=== PATIENT | male | born 1945 | race Two or more races ===

== ENCOUNTER 2020-08-22 09:30 | Outpatient (CLI) | payer MEDICARE, OTHER ==
[2020-08-22] MEDS ORDERED: LIDOCAINE 2% JEL 5 ML TUBE ONE (09:51)
[2020-08-22] MEDS ORDERED: LIDOCAINE HCL/MPF 1% 30 ML VIAL IJ ONE (10:25)
== END 2020-08-22 23:59 | disposition home or self-care (01) ==
LOC: WOU 09:30
PROVIDERS: ATTEND Podiatrist Foot & Ankle Surgery
DX: I70.242 Atherosclerosis of native arteries of left leg with ulceration of calf (principal); I70.245 Atherosclerosis of native arteries of left leg with ulceration of other part of foot; L97.825 Non-pressure chronic ulcer of other part of left lower leg with muscle involvement without evidence of necrosis; L97.426 Non-pressure chronic ulcer of left heel and midfoot with bone involvement without evidence of necrosis; M79.605 Pain in left leg; Z89.432 Acquired absence of left foot
CPT/HCPCS: 11043; 11044; 73630; 88305; 88311; A6210; J3490

== ENCOUNTER 2020-08-29 08:26 | Outpatient (CLI) | payer MEDICARE, OTHER ==
[2020-08-29] MEDS ORDERED: LIDOCAINE HCL/MPF 1% 30 ML VIAL IJ ONE (08:46)
== END 2020-08-29 23:59 | disposition home health service (06) ==
LOC: WOU 08:26
PROVIDERS: ATTEND Podiatrist Foot & Ankle Surgery
DX: I70.242 Atherosclerosis of native arteries of left leg with ulceration of calf (principal); I70.245 Atherosclerosis of native arteries of left leg with ulceration of other part of foot; L97.825 Non-pressure chronic ulcer of other part of left lower leg with muscle involvement without evidence of necrosis; L97.526 Non-pressure chronic ulcer of other part of left foot with bone involvement without evidence of necrosis; M79.605 Pain in left leg; Z89.432 Acquired absence of left foot; Z79.02 Long term (current) use of antithrombotics/antiplatelets; Z79.82 Long term (current) use of aspirin
CPT/HCPCS: 11043; 11044; A6210; J3490

== ENCOUNTER 2020-09-02 12:49 | Outpatient (CLI) | payer MEDICARE, OTHER | END 2020-09-02 23:59 | disposition home or self-care (01) | LOC: RAD 12:49 | PROVIDERS: ATTEND Podiatrist Foot & Ankle Surgery | DX: I70.203 Unspecified atherosclerosis of native arteries of extremities, bilateral legs (principal); L97.929 Non-pressure chronic ulcer of unspecified part of left lower leg with unspecified severity ==

== ENCOUNTER 2020-09-05 09:13 | Outpatient (CLI) | payer MEDICARE, OTHER ==
[2020-09-05] MEDS ORDERED: LIDOCAINE HCL/MPF 1% 30 ML VIAL IJ ONE (09:40)
[2020-09-05] MEDS ORDERED: COLLAGENASE 5 GM TUBE UD TP ONE (09:45)
== END 2020-09-05 23:59 | disposition home health service (06) ==
LOC: WOU 09:13
PROVIDERS: ATTEND Podiatrist Foot & Ankle Surgery
DX: I70.242 Atherosclerosis of native arteries of left leg with ulceration of calf (principal); I70.245 Atherosclerosis of native arteries of left leg with ulceration of other part of foot; L97.825 Non-pressure chronic ulcer of other part of left lower leg with muscle involvement without evidence of necrosis; L97.523 Non-pressure chronic ulcer of other part of left foot with necrosis of muscle; L03.116 Cellulitis of left lower limb; M79.605 Pain in left leg; Z89.432 Acquired absence of left foot; Z79.82 Long term (current) use of aspirin
CPT/HCPCS: 11043; A6210; J3490

== ENCOUNTER 2020-09-08 08:48 | Outpatient (CLI) | payer MEDICARE, OTHER ==
[2020-09-08] MEDS ORDERED: COLLAGENASE 5 GM TUBE UD TP ONE (09:22)
== END 2020-09-08 23:59 | disposition home health service (06) ==
LOC: WOU 08:48
PROVIDERS: ATTEND Podiatrist Foot & Ankle Surgery
DX: I70.242 Atherosclerosis of native arteries of left leg with ulceration of calf (principal); L97.825 Non-pressure chronic ulcer of other part of left lower leg with muscle involvement without evidence of necrosis; I70.245 Atherosclerosis of native arteries of left leg with ulceration of other part of foot; L97.523 Non-pressure chronic ulcer of other part of left foot with necrosis of muscle; L03.116 Cellulitis of left lower limb; M79.605 Pain in left leg; I10 Essential (primary) hypertension; Z79.02 Long term (current) use of antithrombotics/antiplatelets; Z79.82 Long term (current) use of aspirin; Z89.432 Acquired absence of left foot
CPT/HCPCS: 11042; 11043; A6210

== ENCOUNTER 2020-09-12 09:00 | Outpatient (CLI) | payer MEDICARE, OTHER ==
[2020-09-12] MEDS ORDERED: COLLAGENASE 5 GM TUBE UD TP ONE (09:46)
== END 2020-09-12 23:59 | disposition home health service (06) ==
LOC: WOU 09:00
PROVIDERS: ATTEND Podiatrist Foot & Ankle Surgery
DX: I70.242 Atherosclerosis of native arteries of left leg with ulceration of calf (principal); L97.825 Non-pressure chronic ulcer of other part of left lower leg with muscle involvement without evidence of necrosis; I70.245 Atherosclerosis of native arteries of left leg with ulceration of other part of foot; L97.522 Non-pressure chronic ulcer of other part of left foot with fat layer exposed; M79.605 Pain in left leg; Z89.442 Acquired absence of left ankle; Z79.82 Long term (current) use of aspirin
CPT/HCPCS: 11042; 11043; A6210

== ENCOUNTER 2020-09-14 09:00 | Outpatient (CLI) | payer MEDICARE, OTHER ==
[2020-09-14] MEDS ORDERED: COLLAGENASE 5 GM TUBE UD TP ONE (10:25)
[2020-09-14 11:56] LABS: PREALBUMIN 24.9 MG/DL (18.0-35.7)
[2020-09-15 10:58] LABS: CALCIUM, SERUM 9.7 mg/dL (8.5-10.1); POTASSIUM 4.6 mmol/L (3.5-5.1)
== END 2020-09-14 23:59 | disposition home or self-care (01) ==
LOC: VASLAB 09:00
PROVIDERS: ATTEND Internal Medicine
DX: R60.0 Localized edema (principal); L97.529 Non-pressure chronic ulcer of other part of left foot with unspecified severity; L97.329 Non-pressure chronic ulcer of left ankle with unspecified severity; E78.5 Hyperlipidemia, unspecified; I10 Essential (primary) hypertension; I25.10 Atherosclerotic heart disease of native coronary artery without angina pectoris; Z89.432 Acquired absence of left foot
CPT/HCPCS: 36415; 80048; 83036; 84134; 84520; A6210; G0463

== ENCOUNTER 2020-09-15 09:00 | Outpatient (CLI) | payer MEDICARE, OTHER | END 2020-09-15 23:59 | disposition home health service (06) | LOC: WOU 09:00 | PROVIDERS: ATTEND Podiatrist Foot & Ankle Surgery | DX: I70.242 Atherosclerosis of native arteries of left leg with ulceration of calf (principal); I70.245 Atherosclerosis of native arteries of left leg with ulceration of other part of foot; L97.825 Non-pressure chronic ulcer of other part of left lower leg with muscle involvement without evidence of necrosis; L97.522 Non-pressure chronic ulcer of other part of left foot with fat layer exposed; Z89.422 Acquired absence of other left toe(s); M79.605 Pain in left leg; I10 Essential (primary) hypertension; Z79.02 Long term (current) use of antithrombotics/antiplatelets; Z79.82 Long term (current) use of aspirin | CPT/HCPCS: 11042; 11043; A6210 ==

== ENCOUNTER 2020-09-19 09:05 | Outpatient (CLI) | payer MEDICARE, OTHER ==
[2020-09-19] MEDS ORDERED: LIDOCAINE SOLN 4% 50 ML BOTTLE ONE (09:21)
== END 2020-09-19 23:59 | disposition home health service (06) ==
LOC: WOU 09:05
PROVIDERS: ATTEND Podiatrist Foot & Ankle Surgery
DX: I70.242 Atherosclerosis of native arteries of left leg with ulceration of calf (principal); I70.245 Atherosclerosis of native arteries of left leg with ulceration of other part of foot; L97.825 Non-pressure chronic ulcer of other part of left lower leg with muscle involvement without evidence of necrosis; L97.522 Non-pressure chronic ulcer of other part of left foot with fat layer exposed; M79.605 Pain in left leg; Z89.422 Acquired absence of other left toe(s); Z79.82 Long term (current) use of aspirin
CPT/HCPCS: 11042; 11043; A6210

== ENCOUNTER 2020-09-21 09:55 | Outpatient (CLI) | payer MEDICARE, OTHER ==
[2020-09-21] MEDS ORDERED: IOHEXOL-350 100 ML VIAL IV ONE (10:09)
[2020-09-21] MEDS ORDERED: IV NS 0.9% 250 ML IV ONE (10:10)
== END 2020-09-21 23:59 | disposition home or self-care (01) ==
LOC: CT 09:55
PROVIDERS: ATTEND Internal Medicine
DX: I70.203 Unspecified atherosclerosis of native arteries of extremities, bilateral legs (principal); N20.0 Calculus of kidney; K80.20 Calculus of gallbladder without cholecystitis without obstruction; K57.30 Diverticulosis of large intestine without perforation or abscess without bleeding
CPT/HCPCS: 75635; J7050; Q9967

== ENCOUNTER 2020-09-22 09:15 | Outpatient (CLI) | payer MEDICARE, OTHER ==
[~2020-09-22 09:15] MED LIST: LIDOCAINE SOLN 4% 50 ML BOTTLE ONE
[2020-09-22] MEDS ORDERED: LIDOCAINE HCL/MPF 1% 30 ML VIAL IJ ONE (09:58)
[2020-09-22] MEDS ORDERED: HYDROCORTISONE 1% CREAM 28.35 GM TUBE TP ONE (10:25)
== END 2020-09-22 23:59 | disposition home health service (06) ==
LOC: WOU 09:15
PROVIDERS: ATTEND Podiatrist Foot & Ankle Surgery
DX: I70.242 Atherosclerosis of native arteries of left leg with ulceration of calf (principal); L97.822 Non-pressure chronic ulcer of other part of left lower leg with fat layer exposed; I70.245 Atherosclerosis of native arteries of left leg with ulceration of other part of foot; L97.422 Non-pressure chronic ulcer of left heel and midfoot with fat layer exposed; M79.605 Pain in left leg; Z89.432 Acquired absence of left foot; Z79.02 Long term (current) use of antithrombotics/antiplatelets; Z79.82 Long term (current) use of aspirin
CPT/HCPCS: 11042; 11043; 88305; 88312; A6210; J3490

== ENCOUNTER 2020-09-26 08:50 | Outpatient (CLI) | payer MEDICARE, OTHER ==
[2020-09-26] MEDS ORDERED: LIDOCAINE SOLN 4% 50 ML BOTTLE ONE (09:05)
== END 2020-09-26 23:59 | disposition home health service (06) ==
LOC: WOU 08:50
PROVIDERS: ATTEND Podiatrist Foot & Ankle Surgery
DX: I70.242 Atherosclerosis of native arteries of left leg with ulceration of calf (principal); I70.245 Atherosclerosis of native arteries of left leg with ulceration of other part of foot; L97.825 Non-pressure chronic ulcer of other part of left lower leg with muscle involvement without evidence of necrosis; L97.522 Non-pressure chronic ulcer of other part of left foot with fat layer exposed; I10 Essential (primary) hypertension; Z79.02 Long term (current) use of antithrombotics/antiplatelets; Z79.82 Long term (current) use of aspirin; Z89.432 Acquired absence of left foot
CPT/HCPCS: 11042; 11043

== ENCOUNTER 2020-09-27 11:19 | Outpatient (CLI) | payer MEDICARE, OTHER | END 2020-09-27 23:59 | disposition home or self-care (01) | LOC: MSC 11:19 | PROVIDERS: ATTEND Anesthesiology | DX: M79.672 Pain in left foot (principal); L97.329 Non-pressure chronic ulcer of left ankle with unspecified severity; B99.9 Unspecified infectious disease; L03.116 Cellulitis of left lower limb; Z89.432 Acquired absence of left foot; Z79.891 Long term (current) use of opiate analgesic ==

== ENCOUNTER 2020-09-28 09:00 | Outpatient (CLI) | payer MEDICARE, OTHER | END 2020-09-28 23:59 | disposition home or self-care (01) | LOC: WOU 09:00 | PROVIDERS: ATTEND Internal Medicine | DX: I73.9 Peripheral vascular disease, unspecified (principal); L97.829 Non-pressure chronic ulcer of other part of left lower leg with unspecified severity; L97.529 Non-pressure chronic ulcer of other part of left foot with unspecified severity; I87.2 Venous insufficiency (chronic) (peripheral); R60.0 Localized edema | CPT/HCPCS: G0463 ==

== ENCOUNTER 2020-09-29 09:00 | Outpatient (CLI) | payer MEDICARE, OTHER ==
[2020-09-29 11:07] LABS: ALBUMIN 3.6 g/dL (3.4-5.0); BILIRUBIN,TOTAL 0.5 mg/dL (0.2-1.0); CREATININE 0.9 mg/dL (0.6-1.3); POTASSIUM 4.1 mmol/L (3.5-5.1); TOTAL PROTEIN, SERUM 6.8 g/dL (6.4-8.2)
== END 2020-09-29 23:59 | disposition home health service (06) ==
LOC: WOU 09:00
PROVIDERS: ATTEND Podiatrist Foot & Ankle Surgery
DX: I70.242 Atherosclerosis of native arteries of left leg with ulceration of calf (principal); L97.825 Non-pressure chronic ulcer of other part of left lower leg with muscle involvement without evidence of necrosis; I70.245 Atherosclerosis of native arteries of left leg with ulceration of other part of foot; L97.522 Non-pressure chronic ulcer of other part of left foot with fat layer exposed; M79.605 Pain in left leg; Z89.432 Acquired absence of left foot; I10 Essential (primary) hypertension; Z79.02 Long term (current) use of antithrombotics/antiplatelets; Z79.82 Long term (current) use of aspirin
CPT/HCPCS: 11042; 11043; 36415; 80053-TC

== ENCOUNTER 2020-10-03 09:00 | Outpatient (CLI) | payer MEDICARE, OTHER ==
[2020-10-03] MEDS ORDERED: LIDOCAINE SOLN 4% 50 ML BOTTLE ONE (09:28)
[2020-10-03] MEDS ORDERED: COLLAGENASE 5 GM TUBE UD TP ONE (10:01)
== END 2020-10-03 23:59 | disposition home health service (06) ==
LOC: WOU 09:00
PROVIDERS: ATTEND Podiatrist Foot & Ankle Surgery
DX: I70.242 Atherosclerosis of native arteries of left leg with ulceration of calf (principal); L97.825 Non-pressure chronic ulcer of other part of left lower leg with muscle involvement without evidence of necrosis; I70.245 Atherosclerosis of native arteries of left leg with ulceration of other part of foot; L97.522 Non-pressure chronic ulcer of other part of left foot with fat layer exposed; M79.605 Pain in left leg; Z89.432 Acquired absence of left foot; Z79.02 Long term (current) use of antithrombotics/antiplatelets; Z79.82 Long term (current) use of aspirin
CPT/HCPCS: 11042; 11043; A6452

== ENCOUNTER 2020-10-06 08:50 | Outpatient (CLI) | payer MEDICARE, OTHER | END 2020-10-06 23:59 | disposition home or self-care (01) | LOC: WOU 08:50 | PROVIDERS: ATTEND Podiatrist Foot & Ankle Surgery | DX: Z75.3 Unavailability and inaccessibility of health-care facilities (principal) ==

== ENCOUNTER 2020-10-06 14:00 | Outpatient (CLI) | payer MEDICARE, OTHER ==
[~2020-10-06 14:00] MED LIST changes: +LIDOCAINE HCL/MPF 1% 30 ML VIAL IJ ONE; -LIDOCAINE SOLN 4% 50 ML BOTTLE ONE
== END 2020-10-06 23:59 | disposition home health service (06) ==
LOC: WOU 14:00
PROVIDERS: ATTEND Surgery
DX: I70.242 Atherosclerosis of native arteries of left leg with ulceration of calf (principal); L97.825 Non-pressure chronic ulcer of other part of left lower leg with muscle involvement without evidence of necrosis; I70.245 Atherosclerosis of native arteries of left leg with ulceration of other part of foot; L97.522 Non-pressure chronic ulcer of other part of left foot with fat layer exposed; L03.116 Cellulitis of left lower limb; M79.605 Pain in left leg; B07.8 Other viral warts; I10 Essential (primary) hypertension; Z89.432 Acquired absence of left foot; Z79.02 Long term (current) use of antithrombotics/antiplatelets; Z79.82 Long term (current) use of aspirin
CPT/HCPCS: 11043; 97605; G0463; J3490

== ENCOUNTER 2020-10-10 08:50 | Outpatient (CLI) | payer MEDICARE, OTHER ==
[2020-10-10] MEDS ORDERED: LIDOCAINE SOLN 4% 50 ML BOTTLE ONE (09:04)
[2020-10-10] MEDS ORDERED: COLLAGENASE 5 GM TUBE UD TP ONE (09:34)
[2020-10-10] MEDS ORDERED: TRIAMCINOLONE ACETONIDE 0.1% CR 15 GM TUBE TP ONE (09:34)
== END 2020-10-10 23:59 | disposition home health service (06) ==
LOC: WOU 08:50
PROVIDERS: ATTEND Podiatrist Foot & Ankle Surgery
DX: I70.242 Atherosclerosis of native arteries of left leg with ulceration of calf (principal); L97.825 Non-pressure chronic ulcer of other part of left lower leg with muscle involvement without evidence of necrosis; I70.245 Atherosclerosis of native arteries of left leg with ulceration of other part of foot; L97.522 Non-pressure chronic ulcer of other part of left foot with fat layer exposed; L03.116 Cellulitis of left lower limb; M79.605 Pain in left leg; I10 Essential (primary) hypertension; Z79.02 Long term (current) use of antithrombotics/antiplatelets; Z79.82 Long term (current) use of aspirin; Z89.432 Acquired absence of left foot
CPT/HCPCS: 11042; 11043

== ENCOUNTER 2020-10-13 09:00 | Outpatient (CLI) | payer MEDICARE, OTHER ==
[2020-10-13] MEDS ORDERED: LIDOCAINE 2% 20 ML MDV ONE (10:41)
== END 2020-10-13 23:59 | disposition home health service (06) ==
LOC: WOU 09:00
PROVIDERS: ATTEND Podiatrist Foot & Ankle Surgery
DX: I70.242 Atherosclerosis of native arteries of left leg with ulceration of calf (principal); I70.245 Atherosclerosis of native arteries of left leg with ulceration of other part of foot; L97.825 Non-pressure chronic ulcer of other part of left lower leg with muscle involvement without evidence of necrosis; L97.522 Non-pressure chronic ulcer of other part of left foot with fat layer exposed; L03.116 Cellulitis of left lower limb; M79.605 Pain in left leg; Z89.432 Acquired absence of left foot; Z79.82 Long term (current) use of aspirin; Z79.02 Long term (current) use of antithrombotics/antiplatelets
CPT/HCPCS: 11043; J3490

== ENCOUNTER 2020-10-17 09:00 | Outpatient (CLI) | payer MEDICARE, OTHER ==
[2020-10-17] MEDS ORDERED: TRIAMCINOLONE ACETONIDE 0.1% CR 15 GM TUBE TP ONE (09:35)
[2020-10-17] MEDS ORDERED: COLLAGENASE 5 GM TUBE UD TP ONE (09:36)
== END 2020-10-17 23:59 | disposition home health service (06) ==
LOC: WOU 09:00
PROVIDERS: ATTEND Podiatrist Foot & Ankle Surgery
DX: I70.242 Atherosclerosis of native arteries of left leg with ulceration of calf (principal); I70.245 Atherosclerosis of native arteries of left leg with ulceration of other part of foot; L97.825 Non-pressure chronic ulcer of other part of left lower leg with muscle involvement without evidence of necrosis; L97.522 Non-pressure chronic ulcer of other part of left foot with fat layer exposed; Z89.432 Acquired absence of left foot; M79.605 Pain in left leg; Z79.82 Long term (current) use of aspirin; Z79.02 Long term (current) use of antithrombotics/antiplatelets
CPT/HCPCS: 11042; 11043

== ENCOUNTER 2020-10-20 08:55 | Outpatient (CLI) | payer MEDICARE, OTHER ==
[2020-10-20] MEDS ORDERED: TRIAMCINOLONE ACETONIDE 0.1% CR 15 GM TUBE TP ONE (09:53)
[2020-10-20] MEDS ORDERED: COLLAGENASE 5 GM TUBE UD TP ONE (09:54)
== END 2020-10-20 23:59 | disposition home health service (06) ==
LOC: WOU 08:55
PROVIDERS: ATTEND Podiatrist Foot & Ankle Surgery
DX: I70.242 Atherosclerosis of native arteries of left leg with ulceration of calf (principal); L97.825 Non-pressure chronic ulcer of other part of left lower leg with muscle involvement without evidence of necrosis; I70.245 Atherosclerosis of native arteries of left leg with ulceration of other part of foot; L97.522 Non-pressure chronic ulcer of other part of left foot with fat layer exposed; M79.605 Pain in left leg; Z89.432 Acquired absence of left foot; B07.8 Other viral warts; Z79.02 Long term (current) use of antithrombotics/antiplatelets; Z79.82 Long term (current) use of aspirin
CPT/HCPCS: 11042; 11043

== ENCOUNTER 2020-10-24 09:00 | Outpatient (CLI) | payer MEDICARE, OTHER ==
[2020-10-24] MEDS ORDERED: TRIAMCINOLONE ACETONIDE 0.1% CR 15 GM TUBE TP ONE (09:40)
== END 2020-10-24 23:59 | disposition home health service (06) ==
LOC: WOU 09:00
PROVIDERS: ATTEND Podiatrist Foot & Ankle Surgery
DX: I70.242 Atherosclerosis of native arteries of left leg with ulceration of calf (principal); I70.245 Atherosclerosis of native arteries of left leg with ulceration of other part of foot; L97.825 Non-pressure chronic ulcer of other part of left lower leg with muscle involvement without evidence of necrosis; L97.522 Non-pressure chronic ulcer of other part of left foot with fat layer exposed; M79.605 Pain in left leg; Z89.432 Acquired absence of left foot; Z79.02 Long term (current) use of antithrombotics/antiplatelets
CPT/HCPCS: A6209 ×2; C5271; Q4117

== ENCOUNTER 2020-10-25 11:55 | Outpatient (CLI) | payer MEDICARE, OTHER | END 2020-10-25 23:59 | disposition home or self-care (01) | LOC: MSC 11:55 | PROVIDERS: ATTEND Anesthesiology | DX: L97.529 Non-pressure chronic ulcer of other part of left foot with unspecified severity (principal); L03.116 Cellulitis of left lower limb; M79.2 Neuralgia and neuritis, unspecified; Z79.1 Long term (current) use of non-steroidal anti-inflammatories (NSAID); Z79.891 Long term (current) use of opiate analgesic ==

== ENCOUNTER 2020-10-31 08:55 | Outpatient (CLI) | payer MEDICARE, OTHER ==
[2020-10-31] MEDS ORDERED: LIDOCAINE SOLN 4% 50 ML BOTTLE ONE (08:56)
[2020-10-31] MEDS ORDERED: UREA 10% -AHA 4% CREAM 57 GM TUBE ONE (09:36)
== END 2020-10-31 23:59 | disposition home health service (06) ==
LOC: WOU 08:55
PROVIDERS: ATTEND Podiatrist Foot & Ankle Surgery
DX: I70.242 Atherosclerosis of native arteries of left leg with ulceration of calf (principal); L97.822 Non-pressure chronic ulcer of other part of left lower leg with fat layer exposed; M79.605 Pain in left leg; Z89.432 Acquired absence of left foot; I10 Essential (primary) hypertension; Z79.82 Long term (current) use of aspirin; Z79.02 Long term (current) use of antithrombotics/antiplatelets
CPT/HCPCS: 11043; A6209

== ENCOUNTER 2020-11-07 09:00 | Outpatient (CLI) | payer MEDICARE, OTHER | END 2020-11-07 23:59 | disposition home health service (06) | LOC: WOU 09:00 | PROVIDERS: ATTEND Podiatrist Foot & Ankle Surgery | DX: I70.242 Atherosclerosis of native arteries of left leg with ulceration of calf (principal); L97.825 Non-pressure chronic ulcer of other part of left lower leg with muscle involvement without evidence of necrosis; M79.605 Pain in left leg; Z89.432 Acquired absence of left foot; I10 Essential (primary) hypertension; Z79.899 Other long term (current) drug therapy; Z79.02 Long term (current) use of antithrombotics/antiplatelets | CPT/HCPCS: 11043 ==

== ENCOUNTER 2020-11-10 10:35 | Outpatient (CLI) | payer MEDICARE, OTHER | END 2020-11-10 23:59 | disposition home or self-care (01) | LOC: MRI 10:35 | PROVIDERS: ATTEND Podiatrist Foot & Ankle Surgery | DX: L97.929 Non-pressure chronic ulcer of unspecified part of left lower leg with unspecified severity (principal); M62.572 Muscle wasting and atrophy, not elsewhere classified, left ankle and foot; M79.89 Other specified soft tissue disorders | CPT/HCPCS: 73718-TC; 73721-TC ==

== ENCOUNTER 2020-11-14 09:00 | Outpatient (CLI) | payer MEDICARE, OTHER ==
[~2020-11-14 09:00] MED LIST changes: -LIDOCAINE HCL/MPF 1% 30 ML VIAL IJ ONE; +LIDOCAINE SOLN 4% 50 ML BOTTLE ONE
[2020-11-14] MEDS ORDERED: GENTAMICIN 0.1% CREAM 15 GM TUBE ONE (09:23)
== END 2020-11-14 23:59 | disposition home health service (06) ==
LOC: WOU 09:00
PROVIDERS: ATTEND Podiatrist Foot & Ankle Surgery
DX: I70.242 Atherosclerosis of native arteries of left leg with ulceration of calf (principal); L97.825 Non-pressure chronic ulcer of other part of left lower leg with muscle involvement without evidence of necrosis; M79.605 Pain in left leg; Z89.422 Acquired absence of other left toe(s); Z79.02 Long term (current) use of antithrombotics/antiplatelets; Z79.82 Long term (current) use of aspirin
CPT/HCPCS: 11043

== ENCOUNTER 2020-11-21 08:55 | Outpatient (CLI) | payer MEDICARE, OTHER ==
[2020-11-21] MEDS ORDERED: LIDOCAINE SOLN 4% 50 ML BOTTLE ONE (09:00)
== END 2020-11-21 23:59 | disposition home health service (06) ==
LOC: WOU 08:55
PROVIDERS: ATTEND Podiatrist Foot & Ankle Surgery
DX: I70.242 Atherosclerosis of native arteries of left leg with ulceration of calf (principal); M79.605 Pain in left leg; I10 Essential (primary) hypertension; Z79.02 Long term (current) use of antithrombotics/antiplatelets; Z79.82 Long term (current) use of aspirin; Z89.432 Acquired absence of left foot; Z79.899 Other long term (current) drug therapy
CPT/HCPCS: 11043

== ENCOUNTER 2020-11-28 09:00 | Outpatient (CLI) | payer MEDICARE, OTHER ==
[2020-11-28] MEDS ORDERED: LIDOCAINE SOLN 4% 50 ML BOTTLE ONE (09:06)
[2020-11-28] MEDS ORDERED: TRIAMCINOLONE ACETONIDE 0.1% CR 15 GM TUBE TP ONE (09:21)
== END 2020-11-28 23:59 | disposition home health service (06) ==
LOC: WOU 09:00
PROVIDERS: ATTEND Podiatrist Foot & Ankle Surgery
DX: I70.242 Atherosclerosis of native arteries of left leg with ulceration of calf (principal); L97.825 Non-pressure chronic ulcer of other part of left lower leg with muscle involvement without evidence of necrosis; M79.605 Pain in left leg; I10 Essential (primary) hypertension; Z89.432 Acquired absence of left foot; Z79.02 Long term (current) use of antithrombotics/antiplatelets; Z79.82 Long term (current) use of aspirin
CPT/HCPCS: 11042

== ENCOUNTER 2020-12-05 09:00 | Outpatient (CLI) | payer MEDICARE, OTHER | END 2020-12-05 23:59 | disposition home health service (06) | LOC: WOU 09:00 | PROVIDERS: ATTEND Podiatrist Foot & Ankle Surgery | DX: I70.242 Atherosclerosis of native arteries of left leg with ulceration of calf (principal); L97.825 Non-pressure chronic ulcer of other part of left lower leg with muscle involvement without evidence of necrosis; M79.605 Pain in left leg; Z89.422 Acquired absence of other left toe(s); Z79.82 Long term (current) use of aspirin | CPT/HCPCS: 15271; Q4196 ==

== ENCOUNTER 2020-12-12 08:48 | Outpatient (CLI) | payer MEDICARE, OTHER ==
[2020-12-12] MEDS ORDERED: LIDOCAINE SOLN 4% 50 ML BOTTLE ONE (08:59)
== END 2020-12-12 23:59 | disposition home health service (06) ==
LOC: WOU 08:48
PROVIDERS: ATTEND Podiatrist Foot & Ankle Surgery
DX: I70.242 Atherosclerosis of native arteries of left leg with ulceration of calf (principal); L97.822 Non-pressure chronic ulcer of other part of left lower leg with fat layer exposed; M79.605 Pain in left leg; Z89.432 Acquired absence of left foot; Z79.02 Long term (current) use of antithrombotics/antiplatelets; Z79.82 Long term (current) use of aspirin
CPT/HCPCS: 15271; Q4196

== ENCOUNTER 2020-12-19 09:00 | Outpatient (CLI) | payer MEDICARE, OTHER ==
[2020-12-19] MEDS ORDERED: LIDOCAINE SOLN 4% 50 ML BOTTLE ONE (09:15)
[2020-12-19] MEDS ORDERED: TRIAMCINOLONE ACETONIDE 0.1% CR 15 GM TUBE TP ONE (09:34)
== END 2020-12-19 23:59 | disposition home health service (06) ==
LOC: WOU 09:00
PROVIDERS: ATTEND Podiatrist Foot & Ankle Surgery
DX: I70.242 Atherosclerosis of native arteries of left leg with ulceration of calf (principal); L97.822 Non-pressure chronic ulcer of other part of left lower leg with fat layer exposed; M79.605 Pain in left leg; Z89.422 Acquired absence of other left toe(s); Z79.02 Long term (current) use of antithrombotics/antiplatelets; Z79.82 Long term (current) use of aspirin
CPT/HCPCS: 15271; Q4196

== ENCOUNTER 2020-12-26 09:00 | Outpatient (CLI) | payer MEDICARE, OTHER ==
[2020-12-26] MEDS ORDERED: TRIAMCINOLONE ACETONIDE 0.1% CR 15 GM TUBE TP ONE (09:16)
== END 2020-12-26 23:59 | disposition home health service (06) ==
LOC: WOU 09:00
PROVIDERS: ATTEND Podiatrist Foot & Ankle Surgery
DX: I70.242 Atherosclerosis of native arteries of left leg with ulceration of calf (principal); L97.822 Non-pressure chronic ulcer of other part of left lower leg with fat layer exposed; M79.605 Pain in left leg; Z89.422 Acquired absence of other left toe(s); Z79.82 Long term (current) use of aspirin
CPT/HCPCS: 15271; Q4196

== ENCOUNTER 2021-01-09 08:50 | Outpatient (CLI) | payer MEDICARE, OTHER ==
[2021-01-09] MEDS ORDERED: LIDOCAINE SOLN 4% 50 ML BOTTLE ONE (09:01)
[2021-01-09] MEDS ORDERED: TRIAMCINOLONE ACETONIDE 0.1% CR 15 GM TUBE TP ONE (09:29)
== END 2021-01-09 23:59 | disposition home health service (06) ==
LOC: WOU 08:50
PROVIDERS: ATTEND Podiatrist Foot & Ankle Surgery
DX: I70.242 Atherosclerosis of native arteries of left leg with ulceration of calf (principal); L97.822 Non-pressure chronic ulcer of other part of left lower leg with fat layer exposed; I83.812 Varicose veins of left lower extremity with pain; I87.2 Venous insufficiency (chronic) (peripheral); M79.605 Pain in left leg; Z89.422 Acquired absence of other left toe(s); Z79.82 Long term (current) use of aspirin; Z79.02 Long term (current) use of antithrombotics/antiplatelets
CPT/HCPCS: 15271; Q4133

== ENCOUNTER → 2021-01-16 | Outpatient (CLI) | payer MEDICARE, OTHER ==
[~2021-01-16] MED LIST changes: +LIDOCAINE 2% JEL 5 ML TUBE ONE; -LIDOCAINE SOLN 4% 50 ML BOTTLE ONE; +TRIAMCINOLONE ACETONIDE 0.1% CR 15 GM TUBE TP ONE
== END | disposition home health service (06) ==
LOC: WOU 09:00
PROVIDERS: ATTEND Podiatrist Foot & Ankle Surgery
DX: I70.242 Atherosclerosis of native arteries of left leg with ulceration of calf (principal); L97.822 Non-pressure chronic ulcer of other part of left lower leg with fat layer exposed; I87.2 Venous insufficiency (chronic) (peripheral); M79.605 Pain in left leg; I10 Essential (primary) hypertension; Z89.432 Acquired absence of left foot; Z79.02 Long term (current) use of antithrombotics/antiplatelets; Z79.82 Long term (current) use of aspirin
CPT/HCPCS: 15271; Q4133 ×2

== ENCOUNTER 2021-01-23 08:45 | Outpatient (CLI) | payer MEDICARE, OTHER ==
[2021-01-23] MEDS ORDERED: LIDOCAINE SOLN 4% 50 ML BOTTLE ONE (08:52)
== END 2021-01-23 23:59 | disposition home health service (06) ==
LOC: WOU 08:45
PROVIDERS: ATTEND Podiatrist Foot & Ankle Surgery
DX: I70.242 Atherosclerosis of native arteries of left leg with ulceration of calf (principal); L97.822 Non-pressure chronic ulcer of other part of left lower leg with fat layer exposed; I83.812 Varicose veins of left lower extremity with pain; I87.2 Venous insufficiency (chronic) (peripheral); M79.605 Pain in left leg; Z89.422 Acquired absence of other left toe(s); Z79.82 Long term (current) use of aspirin; Z79.02 Long term (current) use of antithrombotics/antiplatelets
CPT/HCPCS: 15271; Q4186

== ENCOUNTER 2021-01-30 09:00 | Outpatient (CLI) | payer MEDICARE, OTHER ==
[~2021-01-30 09:00] MED LIST changes: -LIDOCAINE 2% JEL 5 ML TUBE ONE; +LIDOCAINE SOLN 4% 50 ML BOTTLE ONE; -TRIAMCINOLONE ACETONIDE 0.1% CR 15 GM TUBE TP ONE
[2021-01-30] MEDS ORDERED: TRIAMCINOLONE ACETONIDE 0.1% CR 15 GM TUBE TP ONE (09:39)
== END 2021-01-30 23:59 | disposition home health service (06) ==
LOC: WOU 09:00
PROVIDERS: ATTEND Podiatrist Foot & Ankle Surgery
DX: I70.242 Atherosclerosis of native arteries of left leg with ulceration of calf (principal); L97.822 Non-pressure chronic ulcer of other part of left lower leg with fat layer exposed; I87.2 Venous insufficiency (chronic) (peripheral); I83.812 Varicose veins of left lower extremity with pain; M79.605 Pain in left leg; Z89.432 Acquired absence of left foot; I10 Essential (primary) hypertension; Z79.02 Long term (current) use of antithrombotics/antiplatelets; Z79.82 Long term (current) use of aspirin
CPT/HCPCS: 15271; Q4186

== ENCOUNTER 2021-02-13 08:50 | Outpatient (CLI) | payer MEDICARE, OTHER ==
[2021-02-13] MEDS ORDERED: LIDOCAINE SOLN 4% 50 ML BOTTLE ONE (08:56)
[2021-02-13] MEDS ORDERED: SILVER SULFADIAZINE CREAM 25 GM TUBE ONE (09:11)
== END 2021-02-13 23:59 | disposition home health service (06) ==
LOC: WOU 08:50
PROVIDERS: ATTEND Podiatrist Foot & Ankle Surgery
DX: I70.248 Atherosclerosis of native arteries of left leg with ulceration of other part of lower leg (principal); L97.822 Non-pressure chronic ulcer of other part of left lower leg with fat layer exposed; I87.2 Venous insufficiency (chronic) (peripheral); Z89.432 Acquired absence of left foot
CPT/HCPCS: 11042

== ENCOUNTER → 2021-02-20 | Outpatient (CLI) | payer MEDICARE, OTHER ==
[~2021-02-20] MED LIST changes: +SILVER SULFADIAZINE CREAM 25 GM TUBE ONE
== END | disposition home health service (06) ==
LOC: WOU 08:51
PROVIDERS: ATTEND Podiatrist Foot & Ankle Surgery
DX: I70.248 Atherosclerosis of native arteries of left leg with ulceration of other part of lower leg (principal); L97.822 Non-pressure chronic ulcer of other part of left lower leg with fat layer exposed; I83.812 Varicose veins of left lower extremity with pain; M79.605 Pain in left leg; I87.2 Venous insufficiency (chronic) (peripheral); Z89.432 Acquired absence of left foot; Z79.82 Long term (current) use of aspirin
CPT/HCPCS: 11042; A6209

== ENCOUNTER 2021-02-27 08:52 | Outpatient (CLI) | payer MEDICARE, OTHER ==
[2021-02-27] MEDS ORDERED: LIDOCAINE SOLN 4% 50 ML BOTTLE ONE (09:04)
== END 2021-02-27 23:59 | disposition home health service (06) ==
LOC: WOU 08:52
PROVIDERS: ATTEND Podiatrist Foot & Ankle Surgery
DX: I70.248 Atherosclerosis of native arteries of left leg with ulceration of other part of lower leg (principal); L97.822 Non-pressure chronic ulcer of other part of left lower leg with fat layer exposed; I87.2 Venous insufficiency (chronic) (peripheral); I83.812 Varicose veins of left lower extremity with pain; I10 Essential (primary) hypertension; M79.605 Pain in left leg; B07.8 Other viral warts; Z89.432 Acquired absence of left foot; Z79.82 Long term (current) use of aspirin; Z79.02 Long term (current) use of antithrombotics/antiplatelets
CPT/HCPCS: 15271; Q4133

== ENCOUNTER 2021-03-06 08:50 | Outpatient (CLI) | payer MEDICARE, OTHER | END 2021-03-06 23:59 | disposition home health service (06) | LOC: WOU 08:50 | PROVIDERS: ATTEND Podiatrist Foot & Ankle Surgery | DX: I70.248 Atherosclerosis of native arteries of left leg with ulceration of other part of lower leg (principal); L97.822 Non-pressure chronic ulcer of other part of left lower leg with fat layer exposed; I83.812 Varicose veins of left lower extremity with pain; I87.2 Venous insufficiency (chronic) (peripheral); Z89.432 Acquired absence of left foot; B07.8 Other viral warts; Z79.82 Long term (current) use of aspirin; Z79.02 Long term (current) use of antithrombotics/antiplatelets | CPT/HCPCS: 15271; Q4133 ==

== ENCOUNTER 2021-03-13 09:00 | Outpatient (CLI) | payer MEDICARE, OTHER ==
[~2021-03-13 09:00] MED LIST changes: -SILVER SULFADIAZINE CREAM 25 GM TUBE ONE
== END 2021-03-13 23:59 | disposition home or self-care (01) ==
LOC: WOU 09:00
PROVIDERS: ATTEND Podiatrist Foot & Ankle Surgery
DX: I83.028 Varicose veins of left lower extremity with ulcer other part of lower leg (principal); L97.822 Non-pressure chronic ulcer of other part of left lower leg with fat layer exposed; I70.248 Atherosclerosis of native arteries of left leg with ulceration of other part of lower leg; Z89.422 Acquired absence of other left toe(s); B07.8 Other viral warts; I83.812 Varicose veins of left lower extremity with pain; I10 Essential (primary) hypertension; Z79.899 Other long term (current) drug therapy
CPT/HCPCS: 15271; Q4133

== ENCOUNTER 2021-03-20 08:50 | Outpatient (CLI) | payer MEDICARE, OTHER | END 2021-03-20 23:59 | disposition home health service (06) | LOC: WOU 08:50 | PROVIDERS: ATTEND Podiatrist Foot & Ankle Surgery | DX: I70.242 Atherosclerosis of native arteries of left leg with ulceration of calf (principal); L97.222 Non-pressure chronic ulcer of left calf with fat layer exposed; I70.244 Atherosclerosis of native arteries of left leg with ulceration of heel and midfoot; L97.422 Non-pressure chronic ulcer of left heel and midfoot with fat layer exposed; I83.812 Varicose veins of left lower extremity with pain; Z89.422 Acquired absence of other left toe(s); B07.8 Other viral warts; I10 Essential (primary) hypertension | CPT/HCPCS: 11042; A6209 ==

== ENCOUNTER 2021-03-27 08:55 | Outpatient (CLI) | payer MEDICARE, OTHER | END 2021-03-27 23:59 | disposition home health service (06) | LOC: WOU 08:55 | PROVIDERS: ATTEND Podiatrist Foot & Ankle Surgery | DX: I87.312 Chronic venous hypertension (idiopathic) with ulcer of left lower extremity (principal); I70.242 Atherosclerosis of native arteries of left leg with ulceration of calf; L97.828 Non-pressure chronic ulcer of other part of left lower leg with other specified severity; Z89.422 Acquired absence of other left toe(s); B07.8 Other viral warts; I10 Essential (primary) hypertension | CPT/HCPCS: G0463 ==

== ENCOUNTER 2021-04-04 11:00 | Outpatient (CLI) | payer MEDICARE, OTHER | END 2021-04-04 23:59 | disposition home or self-care (01) | LOC: MSC 11:00 | PROVIDERS: ATTEND Anesthesiology | DX: L97.529 Non-pressure chronic ulcer of other part of left foot with unspecified severity (principal); B99.9 Unspecified infectious disease; L03.116 Cellulitis of left lower limb; M79.2 Neuralgia and neuritis, unspecified; Z79.891 Long term (current) use of opiate analgesic; Z89.432 Acquired absence of left foot; Z96.653 Presence of artificial knee joint, bilateral ==

== ENCOUNTER 2021-04-17 09:00 | Outpatient (CLI) | payer MEDICARE, OTHER ==
[2021-04-17] MEDS ORDERED: CLOTRIMAZOLE 1% 15 GM TUBE TP ONE (09:30)
[2021-04-17] MEDS ORDERED: LIDOCAINE SOLN 4% 50 ML BOTTLE ONE (14:15)
== END 2021-04-17 23:59 | disposition home health service (06) ==
LOC: WOU 09:00
PROVIDERS: ATTEND Podiatrist Foot & Ankle Surgery
DX: I87.312 Chronic venous hypertension (idiopathic) with ulcer of left lower extremity (principal); L97.822 Non-pressure chronic ulcer of other part of left lower leg with fat layer exposed; I73.9 Peripheral vascular disease, unspecified; I87.2 Venous insufficiency (chronic) (peripheral); M79.605 Pain in left leg; Z89.422 Acquired absence of other left toe(s); Z79.82 Long term (current) use of aspirin; Z79.02 Long term (current) use of antithrombotics/antiplatelets
CPT/HCPCS: 11042

== ENCOUNTER 2021-04-24 09:00 | Outpatient (CLI) | payer MEDICARE, OTHER | END 2021-04-24 23:59 | disposition home health service (06) | LOC: WOU 09:00 | PROVIDERS: ATTEND Podiatrist Foot & Ankle Surgery | DX: I70.242 Atherosclerosis of native arteries of left leg with ulceration of calf (principal); L97.812 Non-pressure chronic ulcer of other part of right lower leg with fat layer exposed; I83.812 Varicose veins of left lower extremity with pain; I87.2 Venous insufficiency (chronic) (peripheral); Z89.422 Acquired absence of other left toe(s); B07.8 Other viral warts; I10 Essential (primary) hypertension; Z79.02 Long term (current) use of antithrombotics/antiplatelets | CPT/HCPCS: 11042 ==

== ENCOUNTER 2021-05-08 08:50 | Outpatient (CLI) | payer MEDICARE, OTHER ==
[2021-05-08] MEDS ORDERED: LIDOCAINE SOLN 4% 50 ML BOTTLE ONE (09:04)
== END 2021-05-08 23:59 | disposition home health service (06) ==
LOC: WOU 08:50
PROVIDERS: ATTEND Podiatrist Foot & Ankle Surgery
DX: I70.248 Atherosclerosis of native arteries of left leg with ulceration of other part of lower leg (principal); L97.822 Non-pressure chronic ulcer of other part of left lower leg with fat layer exposed; I87.2 Venous insufficiency (chronic) (peripheral); I83.812 Varicose veins of left lower extremity with pain; M79.605 Pain in left leg; Z89.422 Acquired absence of other left toe(s); Z79.82 Long term (current) use of aspirin
CPT/HCPCS: 11042

== ENCOUNTER 2021-05-22 09:00 | Outpatient (CLI) | payer MEDICARE, OTHER ==
[2021-05-22] MEDS ORDERED: LIDOCAINE SOLN 4% 50 ML BOTTLE ONE (09:18)
== END 2021-05-22 23:59 | disposition home health service (06) ==
LOC: WOU 09:00
PROVIDERS: ATTEND Podiatrist Foot & Ankle Surgery
DX: I70.242 Atherosclerosis of native arteries of left leg with ulceration of calf (principal); L97.822 Non-pressure chronic ulcer of other part of left lower leg with fat layer exposed; I87.2 Venous insufficiency (chronic) (peripheral); I83.812 Varicose veins of left lower extremity with pain; L03.116 Cellulitis of left lower limb; B07.8 Other viral warts; Z89.422 Acquired absence of other left toe(s); M79.605 Pain in left leg; Z79.82 Long term (current) use of aspirin; Z79.02 Long term (current) use of antithrombotics/antiplatelets
CPT/HCPCS: 11042

== ENCOUNTER 2021-05-29 08:50 | Outpatient (CLI) | payer MEDICARE, OTHER ==
[2021-05-29] MEDS ORDERED: LIDOCAINE SOLN 4% 50 ML BOTTLE ONE (09:00)
== END 2021-05-29 23:59 | disposition home health service (06) ==
LOC: WOU 08:50
PROVIDERS: ATTEND Podiatrist Foot & Ankle Surgery
DX: I70.242 Atherosclerosis of native arteries of left leg with ulceration of calf (principal); L97.822 Non-pressure chronic ulcer of other part of left lower leg with fat layer exposed; I83.812 Varicose veins of left lower extremity with pain; I87.2 Venous insufficiency (chronic) (peripheral); M79.605 Pain in left leg; B07.8 Other viral warts; Z89.432 Acquired absence of left foot; Z79.82 Long term (current) use of aspirin; Z79.02 Long term (current) use of antithrombotics/antiplatelets
CPT/HCPCS: 11042

== ENCOUNTER 2021-06-05 09:00 | Outpatient (CLI) | payer MEDICARE, OTHER | END 2021-06-05 23:59 | disposition home health service (06) | LOC: WOU 09:00 | PROVIDERS: ATTEND Podiatrist Foot & Ankle Surgery | DX: I70.248 Atherosclerosis of native arteries of left leg with ulceration of other part of lower leg (principal); L97.822 Non-pressure chronic ulcer of other part of left lower leg with fat layer exposed; I87.2 Venous insufficiency (chronic) (peripheral); I83.812 Varicose veins of left lower extremity with pain; M79.605 Pain in left leg; Z89.422 Acquired absence of other left toe(s); Z79.82 Long term (current) use of aspirin | CPT/HCPCS: 15271; Q4196 ==

== ENCOUNTER 2021-06-12 09:00 | Outpatient (CLI) | payer MEDICARE, OTHER ==
[2021-06-12] MEDS ORDERED: SILVER SULFADIAZINE CREAM 25 GM TUBE ONE (09:12)
== END 2021-06-12 23:59 | disposition home or self-care (01) ==
LOC: WOU 09:00
PROVIDERS: ATTEND Podiatrist Foot & Ankle Surgery
DX: I70.248 Atherosclerosis of native arteries of left leg with ulceration of other part of lower leg (principal); L97.822 Non-pressure chronic ulcer of other part of left lower leg with fat layer exposed; I87.2 Venous insufficiency (chronic) (peripheral); I83.812 Varicose veins of left lower extremity with pain; L03.116 Cellulitis of left lower limb; M79.605 Pain in left leg; B07.8 Other viral warts; Z79.82 Long term (current) use of aspirin; Z79.02 Long term (current) use of antithrombotics/antiplatelets
CPT/HCPCS: 11042; 15271; Q4196

== ENCOUNTER 2021-06-19 09:00 | Outpatient (CLI) | payer MEDICARE, OTHER | END 2021-06-19 23:59 | disposition home health service (06) | LOC: WOU 09:00 | PROVIDERS: ATTEND Podiatrist Foot & Ankle Surgery | DX: I70.248 Atherosclerosis of native arteries of left leg with ulceration of other part of lower leg (principal); L97.822 Non-pressure chronic ulcer of other part of left lower leg with fat layer exposed; I87.2 Venous insufficiency (chronic) (peripheral); I83.812 Varicose veins of left lower extremity with pain; B07.8 Other viral warts; M79.605 Pain in left leg; Z89.422 Acquired absence of other left toe(s); Z79.82 Long term (current) use of aspirin | CPT/HCPCS: 11042; 15271; Q4196 ==

== ENCOUNTER 2021-06-26 09:00 | Outpatient (CLI) | payer MEDICARE, OTHER ==
[~2021-06-26 09:00] MED LIST changes: +LIDOCAINE 2% JEL 5 ML TUBE ONE; -LIDOCAINE SOLN 4% 50 ML BOTTLE ONE
== END 2021-06-26 23:59 | disposition home health service (06) ==
LOC: WOU 09:00
PROVIDERS: ATTEND Podiatrist Foot & Ankle Surgery
DX: I70.248 Atherosclerosis of native arteries of left leg with ulceration of other part of lower leg (principal); L97.822 Non-pressure chronic ulcer of other part of left lower leg with fat layer exposed; I87.2 Venous insufficiency (chronic) (peripheral); I83.812 Varicose veins of left lower extremity with pain; B07.8 Other viral warts; Z89.422 Acquired absence of other left toe(s); M79.605 Pain in left leg; Z79.82 Long term (current) use of aspirin; Z79.02 Long term (current) use of antithrombotics/antiplatelets
CPT/HCPCS: 11042; 87070-TC; 87075-TC; 87186-TC

== ENCOUNTER 2021-07-03 09:00 | Outpatient (CLI) | payer MEDICARE, OTHER ==
[2021-07-03] MEDS ORDERED: LIDOCAINE SOLN 4% 50 ML BOTTLE ONE (09:12)
[2021-07-03] MEDS ORDERED: TRIAMCINOLONE ACETONIDE 0.1% CR 15 GM TUBE TP ONE (09:46)
== END 2021-07-03 23:59 | disposition home health service (06) ==
LOC: WOU 09:00
PROVIDERS: ATTEND Podiatrist Foot & Ankle Surgery
DX: I87.312 Chronic venous hypertension (idiopathic) with ulcer of left lower extremity (principal); L97.822 Non-pressure chronic ulcer of other part of left lower leg with fat layer exposed; I73.9 Peripheral vascular disease, unspecified; I87.2 Venous insufficiency (chronic) (peripheral); M79.605 Pain in left leg; B07.8 Other viral warts; Z89.432 Acquired absence of left foot; Z79.02 Long term (current) use of antithrombotics/antiplatelets; Z79.82 Long term (current) use of aspirin
CPT/HCPCS: 11042

== ENCOUNTER 2021-07-05 08:45 | Outpatient (CLI) | payer MEDICARE, OTHER ==
[2021-07-05] MEDS ORDERED: GENTAMICIN 0.1% CREAM 15 GM TUBE ONE (09:59)
[2021-07-05] MEDS ORDERED: TRIAMCINOLONE ACETONIDE 0.1% CR 15 GM TUBE TP ONE (09:59)
== END 2021-07-05 23:59 | disposition home or self-care (01) ==
LOC: VASLAB 08:45
PROVIDERS: ATTEND Internal Medicine
DX: I70.203 Unspecified atherosclerosis of native arteries of extremities, bilateral legs (principal); I87.2 Venous insufficiency (chronic) (peripheral); L97.329 Non-pressure chronic ulcer of left ankle with unspecified severity; R60.0 Localized edema; I25.10 Atherosclerotic heart disease of native coronary artery without angina pectoris; I10 Essential (primary) hypertension; E78.5 Hyperlipidemia, unspecified; Z89.432 Acquired absence of left foot
CPT/HCPCS: G0463

== ENCOUNTER 2021-07-10 09:00 | Outpatient (CLI) | payer MEDICARE, OTHER ==
[2021-07-10] MEDS ORDERED: LIDOCAINE SOLN 4% 50 ML BOTTLE ONE (09:04)
[2021-07-10] MEDS ORDERED: TRIAMCINOLONE ACETONIDE 0.1% CR 15 GM TUBE TP ONE (09:23)
== END 2021-07-10 23:59 | disposition home health service (06) ==
LOC: WOU 09:00
PROVIDERS: ATTEND Podiatrist Foot & Ankle Surgery
DX: I70.248 Atherosclerosis of native arteries of left leg with ulceration of other part of lower leg (principal); L97.822 Non-pressure chronic ulcer of other part of left lower leg with fat layer exposed; I87.2 Venous insufficiency (chronic) (peripheral); I83.812 Varicose veins of left lower extremity with pain; B07.8 Other viral warts; M79.605 Pain in left leg; Z89.432 Acquired absence of left foot; Z79.02 Long term (current) use of antithrombotics/antiplatelets; Z79.82 Long term (current) use of aspirin
CPT/HCPCS: 11042

== ENCOUNTER → 2021-07-17 | Outpatient (CLI) | payer MEDICARE, OTHER ==
[~2021-07-17] MED LIST changes: -LIDOCAINE 2% JEL 5 ML TUBE ONE; +LIDOCAINE SOLN 4% 50 ML BOTTLE ONE; +TRIAMCINOLONE ACETONIDE 0.1% CR 15 GM TUBE TP ONE
== END | disposition home health service (06) ==
LOC: WOU 08:50
PROVIDERS: ATTEND Podiatrist Foot & Ankle Surgery
DX: I87.312 Chronic venous hypertension (idiopathic) with ulcer of left lower extremity (principal); L97.822 Non-pressure chronic ulcer of other part of left lower leg with fat layer exposed; I73.9 Peripheral vascular disease, unspecified; M79.605 Pain in left leg; Z89.422 Acquired absence of other left toe(s); B07.8 Other viral warts; Z79.82 Long term (current) use of aspirin
CPT/HCPCS: 11042; A6197

== ENCOUNTER 2021-07-24 08:45 | Outpatient (CLI) | payer MEDICARE, OTHER ==
[2021-07-24] MEDS ORDERED: LIDOCAINE SOLN 4% 50 ML BOTTLE ONE (09:07)
[2021-07-24] MEDS ORDERED: TRIAMCINOLONE ACETONIDE 0.1% CR 15 GM TUBE TP ONE (09:21)
== END 2021-07-24 23:59 | disposition home health service (06) ==
LOC: WOU 08:45
PROVIDERS: ATTEND Podiatrist Foot & Ankle Surgery
DX: I70.242 Atherosclerosis of native arteries of left leg with ulceration of calf (principal); L97.822 Non-pressure chronic ulcer of other part of left lower leg with fat layer exposed; I87.2 Venous insufficiency (chronic) (peripheral); I83.812 Varicose veins of left lower extremity with pain; M79.605 Pain in left leg; B07.8 Other viral warts; Z89.422 Acquired absence of other left toe(s); Z79.02 Long term (current) use of antithrombotics/antiplatelets
CPT/HCPCS: 11042

== ENCOUNTER 2021-08-07 09:00 | Outpatient (CLI) | payer MEDICARE, OTHER ==
[~2021-08-07 09:00] MED LIST changes: -TRIAMCINOLONE ACETONIDE 0.1% CR 15 GM TUBE TP ONE
[2021-08-07] MEDS ORDERED: HYDROCORTISONE 1% CREAM 28.35 GM TUBE TP ONE (09:22)
[2021-08-07] MEDS ORDERED: COLLAGENASE 5 GM TUBE UD TP ONE (09:22)
== END 2021-08-07 23:59 | disposition home health service (06) ==
LOC: WOU 09:00
PROVIDERS: ATTEND Podiatrist Foot & Ankle Surgery
DX: I87.312 Chronic venous hypertension (idiopathic) with ulcer of left lower extremity (principal); L97.822 Non-pressure chronic ulcer of other part of left lower leg with fat layer exposed; I73.9 Peripheral vascular disease, unspecified; I87.2 Venous insufficiency (chronic) (peripheral); M79.605 Pain in left leg; B07.8 Other viral warts; Z89.432 Acquired absence of left foot; Z79.82 Long term (current) use of aspirin; Z79.02 Long term (current) use of antithrombotics/antiplatelets
CPT/HCPCS: 11042; 11043

== ENCOUNTER 2021-08-14 08:50 | Outpatient (CLI) | payer MEDICARE, OTHER ==
[2021-08-14] MEDS ORDERED: LIDOCAINE SOLN 4% 50 ML BOTTLE ONE (08:55)
[2021-08-14] MEDS ORDERED: COLLAGENASE 5 GM TUBE UD TP ONE (09:23)
== END 2021-08-14 23:59 | disposition home health service (06) ==
LOC: WOU 08:50
PROVIDERS: ATTEND Podiatrist Foot & Ankle Surgery
DX: I70.248 Atherosclerosis of native arteries of left leg with ulceration of other part of lower leg (principal); L97.822 Non-pressure chronic ulcer of other part of left lower leg with fat layer exposed; L97.825 Non-pressure chronic ulcer of other part of left lower leg with muscle involvement without evidence of necrosis; I87.2 Venous insufficiency (chronic) (peripheral); I83.812 Varicose veins of left lower extremity with pain; Z89.422 Acquired absence of other left toe(s); Z79.02 Long term (current) use of antithrombotics/antiplatelets; Z79.82 Long term (current) use of aspirin
CPT/HCPCS: 11042; 11043

== ENCOUNTER 2021-08-21 08:55 | Outpatient (CLI) | payer MEDICARE, OTHER ==
[2021-08-21] MEDS ORDERED: COLLAGENASE 5 GM TUBE UD TP ONE (09:13)
[2021-08-21] MEDS ORDERED: HYDROCORTISONE 1% CREAM 28.35 GM TUBE TP ONE (09:14)
== END 2021-08-21 23:59 | disposition home health service (06) ==
LOC: WOU 08:55
PROVIDERS: ATTEND Podiatrist Foot & Ankle Surgery
DX: I87.312 Chronic venous hypertension (idiopathic) with ulcer of left lower extremity (principal); L97.822 Non-pressure chronic ulcer of other part of left lower leg with fat layer exposed; L03.116 Cellulitis of left lower limb; I73.9 Peripheral vascular disease, unspecified; B07.8 Other viral warts; I87.2 Venous insufficiency (chronic) (peripheral); M79.605 Pain in left leg; Z89.422 Acquired absence of other left toe(s); Z79.82 Long term (current) use of aspirin; Z79.02 Long term (current) use of antithrombotics/antiplatelets
CPT/HCPCS: 11042

== ENCOUNTER 2021-08-28 08:50 | Outpatient (CLI) | payer MEDICARE, OTHER ==
[2021-08-28] MEDS ORDERED: HYDROCORTISONE 1% CREAM 28.35 GM TUBE TP ONE ×2 (09:04→10:08)
[2021-08-28] MEDS ORDERED: COLLAGENASE 5 GM TUBE UD TP ONE ×2 (10:08)
== END 2021-08-28 23:59 | disposition home health service (06) ==
LOC: WOU 08:50
PROVIDERS: ATTEND Podiatrist Foot & Ankle Surgery
DX: I70.248 Atherosclerosis of native arteries of left leg with ulceration of other part of lower leg (principal); L97.822 Non-pressure chronic ulcer of other part of left lower leg with fat layer exposed; I87.2 Venous insufficiency (chronic) (peripheral); I83.812 Varicose veins of left lower extremity with pain; B07.8 Other viral warts; Z89.422 Acquired absence of other left toe(s); M79.605 Pain in left leg; Z79.02 Long term (current) use of antithrombotics/antiplatelets; Z79.82 Long term (current) use of aspirin
CPT/HCPCS: 11042

== ENCOUNTER 2021-09-04 09:00 | Outpatient (CLI) | payer MEDICARE, OTHER ==
[2021-09-04] MEDS ORDERED: COLLAGENASE 5 GM TUBE UD TP ONE (09:25)
== END 2021-09-04 23:59 | disposition home health service (06) ==
LOC: WOU 09:00
PROVIDERS: ATTEND Podiatrist Foot & Ankle Surgery
DX: I70.248 Atherosclerosis of native arteries of left leg with ulceration of other part of lower leg (principal); L97.822 Non-pressure chronic ulcer of other part of left lower leg with fat layer exposed; I83.812 Varicose veins of left lower extremity with pain; I87.2 Venous insufficiency (chronic) (peripheral); B07.8 Other viral warts; M79.605 Pain in left leg; I10 Essential (primary) hypertension; Z79.82 Long term (current) use of aspirin; Z79.02 Long term (current) use of antithrombotics/antiplatelets
CPT/HCPCS: 11042

== ENCOUNTER 2021-09-11 09:00 | Outpatient (CLI) | payer MEDICARE, OTHER ==
[2021-09-11] MEDS ORDERED: COLLAGENASE 5 GM TUBE UD TP ONE (09:12)
== END 2021-09-11 23:59 | disposition home health service (06) ==
LOC: WOU 09:00
PROVIDERS: ATTEND Podiatrist Foot & Ankle Surgery
DX: I87.312 Chronic venous hypertension (idiopathic) with ulcer of left lower extremity (principal); L97.822 Non-pressure chronic ulcer of other part of left lower leg with fat layer exposed; L03.116 Cellulitis of left lower limb; I73.9 Peripheral vascular disease, unspecified; I87.2 Venous insufficiency (chronic) (peripheral); M79.605 Pain in left leg; Z89.422 Acquired absence of other left toe(s); B07.8 Other viral warts; Z79.02 Long term (current) use of antithrombotics/antiplatelets; Z79.82 Long term (current) use of aspirin
CPT/HCPCS: 11042

== ENCOUNTER 2021-09-18 08:55 | Outpatient (CLI) | payer MEDICARE, OTHER ==
[2021-09-18] MEDS ORDERED: COLLAGENASE 5 GM TUBE UD TP ONE (09:33)
== END 2021-09-18 23:59 | disposition home health service (06) ==
LOC: WOU 08:55
PROVIDERS: ATTEND Podiatrist Foot & Ankle Surgery
DX: I70.248 Atherosclerosis of native arteries of left leg with ulceration of other part of lower leg (principal); L97.822 Non-pressure chronic ulcer of other part of left lower leg with fat layer exposed; I87.2 Venous insufficiency (chronic) (peripheral); I83.812 Varicose veins of left lower extremity with pain; Z89.422 Acquired absence of other left toe(s); B07.8 Other viral warts; M79.605 Pain in left leg; Z79.02 Long term (current) use of antithrombotics/antiplatelets; Z79.82 Long term (current) use of aspirin
CPT/HCPCS: 11042

== ENCOUNTER 2021-09-25 08:55 | Outpatient (CLI) | payer MEDICARE, OTHER ==
[2021-09-25] MEDS ORDERED: COLLAGENASE 5 GM TUBE UD TP ONE (09:12)
[2021-09-25] MEDS ORDERED: HYDROCORTISONE 1% CREAM 28.35 GM TUBE TP ONE (09:13)
== END 2021-09-25 23:59 | disposition home health service (06) ==
LOC: WOU 08:55
PROVIDERS: ATTEND Podiatrist Foot & Ankle Surgery
DX: I70.248 Atherosclerosis of native arteries of left leg with ulceration of other part of lower leg (principal); L97.822 Non-pressure chronic ulcer of other part of left lower leg with fat layer exposed; I87.2 Venous insufficiency (chronic) (peripheral); I83.812 Varicose veins of left lower extremity with pain; M79.605 Pain in left leg; Z89.422 Acquired absence of other left toe(s); Z79.02 Long term (current) use of antithrombotics/antiplatelets; Z79.82 Long term (current) use of aspirin
CPT/HCPCS: 11042

== ENCOUNTER 2021-10-02 08:50 | Outpatient (CLI) | payer MEDICARE, OTHER ==
[~2021-10-02 08:50] MED LIST changes: +COLLAGENASE 5 GM TUBE UD TP ONE
== END 2021-10-02 23:59 | disposition home health service (06) ==
LOC: WOU 08:50
PROVIDERS: ATTEND Podiatrist Foot & Ankle Surgery
DX: I70.248 Atherosclerosis of native arteries of left leg with ulceration of other part of lower leg (principal); L97.822 Non-pressure chronic ulcer of other part of left lower leg with fat layer exposed; I87.2 Venous insufficiency (chronic) (peripheral); I83.812 Varicose veins of left lower extremity with pain; L03.116 Cellulitis of left lower limb; Z89.422 Acquired absence of other left toe(s); M79.605 Pain in left leg; Z79.82 Long term (current) use of aspirin; Z79.02 Long term (current) use of antithrombotics/antiplatelets
CPT/HCPCS: 11042

== ENCOUNTER 2021-10-09 08:50 | Outpatient (CLI) | payer MEDICARE, OTHER ==
[~2021-10-09 08:50] MED LIST changes: -COLLAGENASE 5 GM TUBE UD TP ONE
[2021-10-09] MEDS ORDERED: COLLAGENASE 5 GM TUBE UD TP ONE (09:17)
[2021-10-09] MEDS ORDERED: HYDROCORTISONE 1% CREAM 28.35 GM TUBE TP ONE (09:18)
== END 2021-10-09 23:59 | disposition home health service (06) ==
LOC: WOU 08:50
PROVIDERS: ATTEND Podiatrist Foot & Ankle Surgery
DX: I70.248 Atherosclerosis of native arteries of left leg with ulceration of other part of lower leg (principal); L97.822 Non-pressure chronic ulcer of other part of left lower leg with fat layer exposed; I87.2 Venous insufficiency (chronic) (peripheral); I83.812 Varicose veins of left lower extremity with pain; L03.116 Cellulitis of left lower limb; M79.605 Pain in left leg; Z89.422 Acquired absence of other left toe(s); B07.8 Other viral warts; Z79.82 Long term (current) use of aspirin
CPT/HCPCS: 11042

== ENCOUNTER 2021-10-16 08:55 | Outpatient (CLI) | payer MEDICARE, OTHER ==
[2021-10-16] MEDS ORDERED: COLLAGENASE 5 GM TUBE UD TP ONE (09:28)
== END 2021-10-16 23:59 | disposition home health service (06) ==
LOC: WOU 08:55
PROVIDERS: ATTEND Podiatrist Foot & Ankle Surgery
DX: I70.248 Atherosclerosis of native arteries of left leg with ulceration of other part of lower leg (principal); L97.822 Non-pressure chronic ulcer of other part of left lower leg with fat layer exposed; I87.2 Venous insufficiency (chronic) (peripheral); I83.812 Varicose veins of left lower extremity with pain; M79.605 Pain in left leg; L03.116 Cellulitis of left lower limb; Z89.422 Acquired absence of other left toe(s); Z79.82 Long term (current) use of aspirin; Z79.02 Long term (current) use of antithrombotics/antiplatelets
CPT/HCPCS: 11042

== ENCOUNTER 2021-10-23 08:50 | Outpatient (CLI) | payer MEDICARE, OTHER ==
[2021-10-23] MEDS ORDERED: HYDROCORTISONE 1% CREAM 28.35 GM TUBE TP ONE (09:20)
[2021-10-23] MEDS ORDERED: COLLAGENASE 5 GM TUBE UD TP ONE (09:20)
== END 2021-10-23 23:59 | disposition home health service (06) ==
LOC: WOU 08:50
PROVIDERS: ATTEND Podiatrist Foot & Ankle Surgery
DX: I70.248 Atherosclerosis of native arteries of left leg with ulceration of other part of lower leg (principal); L97.822 Non-pressure chronic ulcer of other part of left lower leg with fat layer exposed; I83.812 Varicose veins of left lower extremity with pain; I87.2 Venous insufficiency (chronic) (peripheral); M79.605 Pain in left leg; Z89.422 Acquired absence of other left toe(s); Z79.82 Long term (current) use of aspirin; Z79.02 Long term (current) use of antithrombotics/antiplatelets
CPT/HCPCS: 11042; A6197

== ENCOUNTER 2021-10-30 08:58 | Outpatient (CLI) | payer MEDICARE, OTHER | END 2021-10-30 23:59 | disposition home health service (06) | LOC: WOU 08:58 | PROVIDERS: ATTEND Podiatrist Foot & Ankle Surgery | DX: I70.248 Atherosclerosis of native arteries of left leg with ulceration of other part of lower leg (principal); L97.822 Non-pressure chronic ulcer of other part of left lower leg with fat layer exposed; I87.2 Venous insufficiency (chronic) (peripheral); I83.812 Varicose veins of left lower extremity with pain; L03.116 Cellulitis of left lower limb; R60.0 Localized edema; M79.605 Pain in left leg; Z79.82 Long term (current) use of aspirin; Z79.02 Long term (current) use of antithrombotics/antiplatelets | CPT/HCPCS: 11042 ==

== ENCOUNTER 2021-11-06 09:00 | Outpatient (CLI) | payer MEDICARE, OTHER ==
[2021-11-06] MEDS ORDERED: LIDOCAINE SOLN 4% 50 ML BOTTLE ONE (09:01)
[2021-11-06] MEDS ORDERED: HYDROCORTISONE 1% CREAM 28.35 GM TUBE TP ONE (09:35)
[2021-11-06] MEDS ORDERED: COLLAGENASE 5 GM TUBE UD TP ONE (09:35)
== END 2021-11-06 23:59 | disposition home health service (06) ==
LOC: WOU 09:00
PROVIDERS: ATTEND Podiatrist Foot & Ankle Surgery
DX: I87.312 Chronic venous hypertension (idiopathic) with ulcer of left lower extremity (principal); L97.822 Non-pressure chronic ulcer of other part of left lower leg with fat layer exposed; I73.9 Peripheral vascular disease, unspecified; I87.2 Venous insufficiency (chronic) (peripheral); M79.605 Pain in left leg; Z89.422 Acquired absence of other left toe(s); Z79.82 Long term (current) use of aspirin; Z79.02 Long term (current) use of antithrombotics/antiplatelets
CPT/HCPCS: 11042

== ENCOUNTER 2021-11-13 08:50 | Outpatient (CLI) | payer MEDICARE, OTHER ==
[2021-11-13] MEDS ORDERED: LIDOCAINE 2% JEL 5 ML TUBE ONE (08:57)
== END 2021-11-13 23:59 | disposition home or self-care (01) ==
LOC: WOU 08:50
PROVIDERS: ATTEND Podiatrist Foot & Ankle Surgery
DX: I70.248 Atherosclerosis of native arteries of left leg with ulceration of other part of lower leg (principal); L97.822 Non-pressure chronic ulcer of other part of left lower leg with fat layer exposed; I87.2 Venous insufficiency (chronic) (peripheral); I83.812 Varicose veins of left lower extremity with pain; M79.605 Pain in left leg; B07.8 Other viral warts; Z79.82 Long term (current) use of aspirin; Z79.02 Long term (current) use of antithrombotics/antiplatelets
CPT/HCPCS: 11042

== ENCOUNTER 2021-11-20 08:50 | Outpatient (CLI) | payer MEDICARE, OTHER ==
[2021-11-20] MEDS ORDERED: LIDOCAINE 2% JEL 5 ML TUBE ONE (08:58)
== END 2021-11-20 23:59 | disposition home health service (06) ==
LOC: WOU 08:50
PROVIDERS: ATTEND Podiatrist Foot & Ankle Surgery
DX: I70.248 Atherosclerosis of native arteries of left leg with ulceration of other part of lower leg (principal); L97.822 Non-pressure chronic ulcer of other part of left lower leg with fat layer exposed; I87.2 Venous insufficiency (chronic) (peripheral); I83.812 Varicose veins of left lower extremity with pain; L03.116 Cellulitis of left lower limb; M79.605 Pain in left leg; Z79.82 Long term (current) use of aspirin; Z79.02 Long term (current) use of antithrombotics/antiplatelets
CPT/HCPCS: 11042; 87070-TC; 87075-TC

== ENCOUNTER 2021-11-27 09:00 | Outpatient (CLI) | payer MEDICARE, OTHER ==
[~2021-11-27 09:00] MED LIST changes: +HYDROCORTISONE 1% CREAM 28.35 GM TUBE TP ONE; +LIDOCAINE 2% JEL 5 ML TUBE ONE; -LIDOCAINE SOLN 4% 50 ML BOTTLE ONE
== END 2021-11-27 23:59 | disposition home or self-care (01) ==
LOC: WOU 09:00
PROVIDERS: ATTEND Podiatrist Foot & Ankle Surgery
DX: Z53.8 Procedure and treatment not carried out for other reasons (principal)

== ENCOUNTER → 2021-12-04 | Outpatient (CLI) | payer MEDICARE, OTHER ==
[~2021-12-04] MED LIST changes: -LIDOCAINE 2% JEL 5 ML TUBE ONE; +MUPIROCIN 2% CREAM 15 GM TUBE TP ONE
== END | disposition home health service (06) ==
LOC: WOU 09:00
PROVIDERS: ATTEND Podiatrist Foot & Ankle Surgery
DX: I70.248 Atherosclerosis of native arteries of left leg with ulceration of other part of lower leg (principal); L97.822 Non-pressure chronic ulcer of other part of left lower leg with fat layer exposed; I87.2 Venous insufficiency (chronic) (peripheral); I83.812 Varicose veins of left lower extremity with pain; L03.116 Cellulitis of left lower limb; B07.8 Other viral warts; Z89.422 Acquired absence of other left toe(s); M79.605 Pain in left leg; Z79.82 Long term (current) use of aspirin
CPT/HCPCS: 11042

== ENCOUNTER 2021-12-18 09:00 | Outpatient (CLI) | payer MEDICARE, OTHER ==
[2021-12-18] MEDS ORDERED: LIDOCAINE 2% JEL 5 ML TUBE ONE (09:02)
== END 2021-12-18 23:59 | disposition home health service (06) ==
LOC: WOU 09:00
PROVIDERS: ATTEND Podiatrist Foot & Ankle Surgery
DX: I70.248 Atherosclerosis of native arteries of left leg with ulceration of other part of lower leg (principal); L97.822 Non-pressure chronic ulcer of other part of left lower leg with fat layer exposed; L03.116 Cellulitis of left lower limb; I87.2 Venous insufficiency (chronic) (peripheral); Z89.432 Acquired absence of left foot; B07.8 Other viral warts; M79.605 Pain in left leg; Z79.82 Long term (current) use of aspirin
CPT/HCPCS: 11042

== ENCOUNTER 2022-01-08 08:50 | Outpatient (CLI) | payer MEDICARE, OTHER ==
[2022-01-08] MEDS ORDERED: LIDOCAINE 2% JEL 5 ML TUBE ONE (08:54)
[2022-01-08] MEDS ORDERED: MUPIROCIN 2% CREAM 15 GM TUBE TP ONE (09:33)
== END 2022-01-08 23:59 | disposition home health service (06) ==
LOC: WOU 08:50
PROVIDERS: ATTEND Podiatrist Foot & Ankle Surgery
DX: I70.248 Atherosclerosis of native arteries of left leg with ulceration of other part of lower leg (principal); L97.822 Non-pressure chronic ulcer of other part of left lower leg with fat layer exposed; I87.2 Venous insufficiency (chronic) (peripheral); I83.812 Varicose veins of left lower extremity with pain; Z89.422 Acquired absence of other left toe(s); L03.116 Cellulitis of left lower limb; M79.605 Pain in left leg; I10 Essential (primary) hypertension; Z79.82 Long term (current) use of aspirin
CPT/HCPCS: 11042

== ENCOUNTER 2022-01-15 08:50 | Outpatient (CLI) | payer MEDICARE, OTHER ==
[2022-01-15] MEDS ORDERED: MUPIROCIN 2% CREAM 15 GM TUBE TP ONE (09:29)
[2022-01-15] MEDS ORDERED: HYDROCORTISONE 1% CREAM 28.35 GM TUBE TP ONE (09:32)
== END 2022-01-15 23:59 | disposition home health service (06) ==
LOC: WOU 08:50
PROVIDERS: ATTEND Podiatrist Foot & Ankle Surgery
DX: I70.248 Atherosclerosis of native arteries of left leg with ulceration of other part of lower leg (principal); L97.822 Non-pressure chronic ulcer of other part of left lower leg with fat layer exposed; I87.2 Venous insufficiency (chronic) (peripheral); I83.812 Varicose veins of left lower extremity with pain; M79.605 Pain in left leg; L03.116 Cellulitis of left lower limb; Z79.82 Long term (current) use of aspirin; Z79.02 Long term (current) use of antithrombotics/antiplatelets; Z89.432 Acquired absence of left foot; I10 Essential (primary) hypertension
CPT/HCPCS: 11042

== ENCOUNTER 2022-01-22 08:55 | Outpatient (CLI) | payer MEDICARE, OTHER ==
[2022-01-22] MEDS ORDERED: LIDOCAINE 2% JEL 5 ML TUBE ONE (09:03)
[2022-01-22] MEDS ORDERED: MUPIROCIN 2% CREAM 15 GM TUBE TP ONE (09:18)
== END 2022-01-22 23:59 | disposition home health service (06) ==
LOC: WOU 08:55
PROVIDERS: ATTEND Podiatrist Foot & Ankle Surgery
DX: I70.248 Atherosclerosis of native arteries of left leg with ulceration of other part of lower leg (principal); L97.822 Non-pressure chronic ulcer of other part of left lower leg with fat layer exposed; I87.2 Venous insufficiency (chronic) (peripheral); I83.812 Varicose veins of left lower extremity with pain; L03.116 Cellulitis of left lower limb; M79.605 Pain in left leg; Z89.422 Acquired absence of other left toe(s); Z79.82 Long term (current) use of aspirin; Z79.02 Long term (current) use of antithrombotics/antiplatelets
CPT/HCPCS: 11042

== ENCOUNTER 2022-01-29 10:45 | Outpatient (CLI) | payer MEDICARE, OTHER ==
[2022-01-29] MEDS ORDERED: LIDOCAINE 2% JEL 5 ML TUBE ONE (10:54)
[2022-01-29] MEDS ORDERED: MUPIROCIN 2% CREAM 15 GM TUBE TP ONE (11:26)
== END 2022-01-29 23:59 | disposition home health service (06) ==
LOC: WOU 10:45
PROVIDERS: ATTEND Surgery
DX: I70.248 Atherosclerosis of native arteries of left leg with ulceration of other part of lower leg (principal); L97.822 Non-pressure chronic ulcer of other part of left lower leg with fat layer exposed; I87.2 Venous insufficiency (chronic) (peripheral); I83.812 Varicose veins of left lower extremity with pain; Z89.422 Acquired absence of other left toe(s); M79.605 Pain in left leg; Z79.02 Long term (current) use of antithrombotics/antiplatelets; Z79.82 Long term (current) use of aspirin
CPT/HCPCS: 11042

== ENCOUNTER 2022-02-12 09:00 | Outpatient (CLI) | payer MEDICARE, OTHER ==
[2022-02-12] MEDS ORDERED: LIDOCAINE 2% JEL 5 ML TUBE ONE (09:05)
[2022-02-12] MEDS ORDERED: COLLAGENASE 5 GM TUBE UD TP ONE (09:15)
[2022-02-12] MEDS ORDERED: HYDROCORTISONE 1% CREAM 28.35 GM TUBE TP ONE ×2 (09:17→09:18)
== END 2022-02-12 23:59 | disposition home health service (06) ==
LOC: WOU 09:00
PROVIDERS: ATTEND Podiatrist Foot & Ankle Surgery
DX: I70.248 Atherosclerosis of native arteries of left leg with ulceration of other part of lower leg (principal); L97.822 Non-pressure chronic ulcer of other part of left lower leg with fat layer exposed; I83.812 Varicose veins of left lower extremity with pain; I87.2 Venous insufficiency (chronic) (peripheral); M79.605 Pain in left leg; I10 Essential (primary) hypertension; Z89.432 Acquired absence of left foot; Z79.82 Long term (current) use of aspirin
CPT/HCPCS: 11042

== ENCOUNTER 2022-02-19 08:54 | Outpatient (CLI) | payer MEDICARE, OTHER ==
[2022-02-19] MEDS ORDERED: LIDOCAINE 2% JEL 5 ML TUBE ONE (08:59)
[2022-02-19] MEDS ORDERED: COLLAGENASE 5 GM TUBE UD TP ONE (09:20)
[2022-02-19] MEDS ORDERED: HYDROCORTISONE 1% CREAM 28.35 GM TUBE TP ONE (09:21)
== END 2022-02-19 23:59 | disposition home health service (06) ==
LOC: WOU 08:54
PROVIDERS: ATTEND Podiatrist Foot & Ankle Surgery
DX: I70.248 Atherosclerosis of native arteries of left leg with ulceration of other part of lower leg (principal); L97.822 Non-pressure chronic ulcer of other part of left lower leg with fat layer exposed; I83.812 Varicose veins of left lower extremity with pain; Z89.432 Acquired absence of left foot; B07.8 Other viral warts; Z79.82 Long term (current) use of aspirin; Z79.01 Long term (current) use of anticoagulants
CPT/HCPCS: 11043

== ENCOUNTER 2022-02-26 08:50 | Outpatient (CLI) | payer MEDICARE, OTHER ==
[2022-02-26] MEDS ORDERED: LIDOCAINE SOLN 4% 50 ML BOTTLE ONE (08:52)
[2022-02-26] MEDS ORDERED: COLLAGENASE 5 GM TUBE UD TP ONE (09:30)
[2022-02-26] MEDS ORDERED: HYDROCORTISONE 1% CREAM 28.35 GM TUBE TP ONE (09:31)
== END 2022-02-26 23:59 | disposition home health service (06) ==
LOC: WOU 08:50
PROVIDERS: ATTEND Podiatrist Foot & Ankle Surgery
DX: I70.248 Atherosclerosis of native arteries of left leg with ulceration of other part of lower leg (principal); L97.825 Non-pressure chronic ulcer of other part of left lower leg with muscle involvement without evidence of necrosis; I83.812 Varicose veins of left lower extremity with pain; I87.2 Venous insufficiency (chronic) (peripheral); M79.605 Pain in left leg; Z89.432 Acquired absence of left foot; Z79.82 Long term (current) use of aspirin; Z79.02 Long term (current) use of antithrombotics/antiplatelets
CPT/HCPCS: 11042

== ENCOUNTER 2022-03-05 08:50 | Outpatient (CLI) | payer MEDICARE, OTHER ==
[2022-03-05] MEDS ORDERED: LIDOCAINE SOLN 4% 50 ML BOTTLE ONE (08:52)
== END 2022-03-05 23:59 | disposition home health service (06) ==
LOC: WOU 08:50
PROVIDERS: ATTEND Podiatrist Foot & Ankle Surgery
DX: I70.248 Atherosclerosis of native arteries of left leg with ulceration of other part of lower leg (principal); L97.825 Non-pressure chronic ulcer of other part of left lower leg with muscle involvement without evidence of necrosis; S81.812A Laceration without foreign body, left lower leg, initial encounter; X58.XXXA Exposure to other specified factors, initial encounter; Y92.89 Other specified places as the place of occurrence of the external cause; I83.812 Varicose veins of left lower extremity with pain; I87.2 Venous insufficiency (chronic) (peripheral); M79.605 Pain in left leg; Z79.82 Long term (current) use of aspirin; Z79.02 Long term (current) use of antithrombotics/antiplatelets
CPT/HCPCS: 11042; 11043

== ENCOUNTER 2022-03-12 09:00 | Outpatient (CLI) | payer MEDICARE, OTHER | END 2022-03-12 23:59 | disposition home health service (06) | LOC: WOU 09:00 | PROVIDERS: ATTEND Podiatrist Foot & Ankle Surgery | DX: I70.248 Atherosclerosis of native arteries of left leg with ulceration of other part of lower leg (principal); L97.825 Non-pressure chronic ulcer of other part of left lower leg with muscle involvement without evidence of necrosis; S81.812A Laceration without foreign body, left lower leg, initial encounter; X58.XXXA Exposure to other specified factors, initial encounter; Y92.89 Other specified places as the place of occurrence of the external cause; I87.2 Venous insufficiency (chronic) (peripheral); M79.605 Pain in left leg; I10 Essential (primary) hypertension; Z89.432 Acquired absence of left foot; Z79.82 Long term (current) use of aspirin; Z79.02 Long term (current) use of antithrombotics/antiplatelets | CPT/HCPCS: 11042; 11043 ==

== ENCOUNTER 2022-03-19 09:00 | Outpatient (CLI) | payer MEDICARE, OTHER ==
[~2022-03-19 09:00] MED LIST changes: -HYDROCORTISONE 1% CREAM 28.35 GM TUBE TP ONE; +LIDOCAINE SOLN 4% 50 ML BOTTLE ONE; -MUPIROCIN 2% CREAM 15 GM TUBE TP ONE
== END 2022-03-19 23:59 | disposition home health service (06) ==
LOC: WOU 09:00
PROVIDERS: ATTEND Podiatrist Foot & Ankle Surgery
DX: I70.242 Atherosclerosis of native arteries of left leg with ulceration of calf (principal); L97.225 Non-pressure chronic ulcer of left calf with muscle involvement without evidence of necrosis; L97.822 Non-pressure chronic ulcer of other part of left lower leg with fat layer exposed; I83.812 Varicose veins of left lower extremity with pain; I10 Essential (primary) hypertension; Z89.422 Acquired absence of other left toe(s); B07.8 Other viral warts
CPT/HCPCS: 11042; 11043

== ENCOUNTER 2022-03-26 09:00 | Outpatient (CLI) | payer MEDICARE, OTHER | END 2022-03-26 23:59 | disposition home health service (06) | LOC: WOU 09:00 | PROVIDERS: ATTEND Podiatrist Foot & Ankle Surgery | DX: I70.248 Atherosclerosis of native arteries of left leg with ulceration of other part of lower leg (principal); L97.828 Non-pressure chronic ulcer of other part of left lower leg with other specified severity; I70.242 Atherosclerosis of native arteries of left leg with ulceration of calf; L97.222 Non-pressure chronic ulcer of left calf with fat layer exposed; Z89.422 Acquired absence of other left toe(s); B07.8 Other viral warts; I83.028 Varicose veins of left lower extremity with ulcer other part of lower leg; M79.605 Pain in left leg; Z79.82 Long term (current) use of aspirin; Z79.899 Other long term (current) drug therapy; I10 Essential (primary) hypertension | CPT/HCPCS: 11042 ==

== ENCOUNTER 2022-03-29 08:56 | Outpatient (CLI) | payer MEDICARE, OTHER ==
[2022-03-29 10:18] LABS: BILIRUBIN,URINE NEGATIVE (NEGATIVE); COLOR,URINE YELLOW (YELLOW); LEUKOCYTE ESTERASE ,URINE NEGATIVE (NEGATIVE); NITRITE, URINE NEGATIVE (NEGATIVE); PH,URINE 6.5 (5.0-8.0); PROTEIN,URINE NEGATIVE (NEGATIVE); UGLUCOSE NEGATIVE (NEGATIVE); UROBILINOGEN,URINE 0.2 EU/dL (0.2)
== END 2022-03-29 23:59 | disposition home or self-care (01) ==
LOC: MSC 08:56
PROVIDERS: ATTEND Internal Medicine
DX: E87.70 Fluid overload, unspecified (principal); I10 Essential (primary) hypertension; Z86.19 Personal history of other infectious and parasitic diseases; E78.5 Hyperlipidemia, unspecified; E78.1 Pure hyperglyceridemia; G62.9 Polyneuropathy, unspecified; E66.9 Obesity, unspecified; M10.9 Gout, unspecified
CPT/HCPCS: 84155; 81003; 36415; 82043; 82570; G0463

== ENCOUNTER 2022-04-02 09:16 | Outpatient (CLI) | payer MEDICARE, OTHER | END 2022-04-02 23:59 | disposition home health service (06) | LOC: WOU 09:16 | PROVIDERS: ATTEND Podiatrist Foot & Ankle Surgery | DX: I70.242 Atherosclerosis of native arteries of left leg with ulceration of calf (principal); I87.2 Venous insufficiency (chronic) (peripheral); I83.812 Varicose veins of left lower extremity with pain; L97.822 Non-pressure chronic ulcer of other part of left lower leg with fat layer exposed; S81.812D Laceration without foreign body, left lower leg, subsequent encounter; I10 Essential (primary) hypertension; Z79.899 Other long term (current) drug therapy; Z89.422 Acquired absence of other left toe(s); B07.8 Other viral warts | CPT/HCPCS: 11042 ==

== ENCOUNTER 2022-04-03 10:30 | Outpatient (CLI) | payer MEDICARE, OTHER | END 2022-04-03 23:59 | disposition home or self-care (01) | LOC: MSC 10:30 | PROVIDERS: ATTEND Internal Medicine | DX: E87.70 Fluid overload, unspecified (principal); I10 Essential (primary) hypertension; E78.5 Hyperlipidemia, unspecified; E78.1 Pure hyperglyceridemia; G62.9 Polyneuropathy, unspecified; E66.9 Obesity, unspecified; M10.9 Gout, unspecified ==

== ENCOUNTER 2022-04-16 09:00 | Outpatient (CLI) | payer MEDICARE, OTHER | END 2022-04-16 23:59 | disposition home health service (06) | LOC: WOU 09:00 | PROVIDERS: ATTEND Podiatrist Foot & Ankle Surgery | DX: I70.242 Atherosclerosis of native arteries of left leg with ulceration of calf (principal); L97.222 Non-pressure chronic ulcer of left calf with fat layer exposed; I83.812 Varicose veins of left lower extremity with pain; I87.2 Venous insufficiency (chronic) (peripheral); M79.605 Pain in left leg; B07.8 Other viral warts; I10 Essential (primary) hypertension; Z89.432 Acquired absence of left foot | CPT/HCPCS: 11042 ==

== ENCOUNTER 2022-04-23 09:00 | Outpatient (CLI) | payer MEDICARE, OTHER ==
[2022-04-23] MEDS ORDERED: LIDOCAINE SOLN 4% 50 ML BOTTLE ONE (09:07)
== END 2022-04-23 23:59 | disposition home health service (06) ==
LOC: WOU 09:00
PROVIDERS: ATTEND Podiatrist Foot & Ankle Surgery
DX: I70.248 Atherosclerosis of native arteries of left leg with ulceration of other part of lower leg (principal); L97.828 Non-pressure chronic ulcer of other part of left lower leg with other specified severity; I83.812 Varicose veins of left lower extremity with pain; I87.2 Venous insufficiency (chronic) (peripheral); M79.605 Pain in left leg; Z89.432 Acquired absence of left foot; Z79.82 Long term (current) use of aspirin; I10 Essential (primary) hypertension

== ENCOUNTER 2022-05-01 09:00 | Outpatient (CLI) | payer MEDICARE, OTHER | END 2022-05-01 23:59 | disposition home or self-care (01) | LOC: WOU 09:00 | PROVIDERS: ATTEND Surgery | DX: I70.248 Atherosclerosis of native arteries of left leg with ulceration of other part of lower leg (principal); L97.822 Non-pressure chronic ulcer of other part of left lower leg with fat layer exposed; I87.2 Venous insufficiency (chronic) (peripheral); I83.812 Varicose veins of left lower extremity with pain; M79.605 Pain in left leg; Z89.432 Acquired absence of left foot; I10 Essential (primary) hypertension | CPT/HCPCS: 11042 ==

== ENCOUNTER 2022-05-07 09:00 | Outpatient (CLI) | payer MEDICARE, OTHER ==
[2022-05-07] MEDS ORDERED: LIDOCAINE SOLN 4% 50 ML BOTTLE ONE (09:13)
== END 2022-05-07 23:59 | disposition home health service (06) ==
LOC: WOU 09:00
PROVIDERS: ATTEND Surgery
DX: I70.248 Atherosclerosis of native arteries of left leg with ulceration of other part of lower leg (principal); L97.822 Non-pressure chronic ulcer of other part of left lower leg with fat layer exposed; I87.2 Venous insufficiency (chronic) (peripheral); I83.812 Varicose veins of left lower extremity with pain; Z89.432 Acquired absence of left foot; I10 Essential (primary) hypertension; Z79.82 Long term (current) use of aspirin; Z79.02 Long term (current) use of antithrombotics/antiplatelets
CPT/HCPCS: 11042

== ENCOUNTER 2022-05-21 09:00 | Outpatient (CLI) | payer MEDICARE, OTHER ==
[2022-05-21] MEDS ORDERED: LIDOCAINE SOLN 4% 50 ML BOTTLE ONE (09:01)
== END 2022-05-21 23:59 | disposition home health service (06) ==
LOC: WOU 09:00
PROVIDERS: ATTEND Podiatrist Foot & Ankle Surgery
DX: I70.248 Atherosclerosis of native arteries of left leg with ulceration of other part of lower leg (principal); L97.822 Non-pressure chronic ulcer of other part of left lower leg with fat layer exposed; I87.2 Venous insufficiency (chronic) (peripheral); I83.812 Varicose veins of left lower extremity with pain; I10 Essential (primary) hypertension; M79.605 Pain in left leg; Z89.422 Acquired absence of other left toe(s); Z79.82 Long term (current) use of aspirin; Z79.02 Long term (current) use of antithrombotics/antiplatelets
CPT/HCPCS: G0463

== ENCOUNTER 2022-06-04 08:58 | Outpatient (CLI) | payer MEDICARE, OTHER ==
[2022-06-04] MEDS ORDERED: LIDOCAINE SOLN 4% 50 ML BOTTLE ONE (09:00)
== END 2022-06-04 23:59 | disposition home health service (06) ==
LOC: WOU 08:58
PROVIDERS: ATTEND Podiatrist Foot & Ankle Surgery
DX: I73.9 Peripheral vascular disease, unspecified (principal); I87.2 Venous insufficiency (chronic) (peripheral); I83.812 Varicose veins of left lower extremity with pain; M79.605 Pain in left leg; Z89.422 Acquired absence of other left toe(s); B07.8 Other viral warts; Z79.82 Long term (current) use of aspirin; Z79.02 Long term (current) use of antithrombotics/antiplatelets
CPT/HCPCS: G0463

== ENCOUNTER 2022-06-18 08:54 | Outpatient (CLI) | payer MEDICARE, OTHER | END 2022-06-18 23:59 | disposition home health service (06) | LOC: WOU 08:54 | PROVIDERS: ATTEND Podiatrist Foot & Ankle Surgery | DX: I87.2 Venous insufficiency (chronic) (peripheral) (principal); I83.812 Varicose veins of left lower extremity with pain; M79.605 Pain in left leg; B07.8 Other viral warts; Z89.432 Acquired absence of left foot; Z79.02 Long term (current) use of antithrombotics/antiplatelets; Z79.82 Long term (current) use of aspirin | CPT/HCPCS: G0463 ==